=== PATIENT | male | born 1980 | race African-American/Black ===

== ENCOUNTER 2018-12-30 19:32 | Emergency (ER) | payer MEDICAID ==
[~2018-12-30] VITALS: Ht 188 cm; Wt 81.0 kg
[2018-12-30] MEDS ORDERED: ONDANSETRON 4MG ODT PO ONE (21:15)
[2018-12-30] MEDS ORDERED: DIPHENHYDRAMINE 50MG CAPSULE PO ONE (21:15)
[2018-12-30] MEDS ORDERED: IBUPROFEN 600MG TABLET PO ONE (21:30)
[2018-12-30 21:40] VITALS: BP 114/49
== END 2018-12-30 21:48 | disposition home or self-care (01) ==
LOC: ER 19:32
DX: J06.9 Acute upper respiratory infection, unspecified (principal); L50.9 Urticaria, unspecified; R11.2 Nausea with vomiting, unspecified; F41.9 Anxiety disorder, unspecified; F31.9 Bipolar disorder, unspecified; F12.10 Cannabis abuse, uncomplicated
CPT/HCPCS: 93005; 99284; Q0162; Q0163

== ENCOUNTER 2019-03-06 07:35 | Emergency (ER) | payer MEDICAID ==
[~2019-03-06] VITALS: Ht 188 cm; Wt 86.0 kg
[2019-03-06] MEDS ORDERED: IBUPROFEN 400MG TABLET PO ONE (10:30)
[2019-03-06 11:00] VITALS: BP 114/68
== END 2019-03-06 11:13 | disposition home or self-care (01) ==
LOC: ER 07:35
DX: B34.9 Viral infection, unspecified (principal)
CPT/HCPCS: 99282

== ENCOUNTER 2022-11-15 16:17 | Emergency (ER) | payer MEDICAID, OTHER ==
[~2022-11-15] VITALS: Ht 190.5 cm; Wt 82.0 kg
[2022-11-15 16:32] VITALS: BP 113/66; RESP 16; TEMP 97.6; O2SAT 100
[2022-11-15 16:38] VITALS: PULSE 82
[2022-11-15] MEDS ORDERED: ONDANSETRON 4MG ODT PO ONE (18:00)
[2022-11-15] MEDS ORDERED: LIDOCAINE 5% PATCH TOP SCH (18:00)
[2022-11-15 18:21] LABS: BASOPHILS % 0.6 % (0.0-2.0); EOSINOPHILS % 0.9 % (0.0-5.0); HEMATOCRIT. 45.2 % (42.0-52.0); HEMOGLOBIN. 15.4 g/dL (14.0-18.0); LYMPHOCYTES % 26.2 % (20.0-50.0); MEAN CORPUSCULAR HEMOGLOBIN 30.8 pg (28.0-32.0); MEAN CORPUSCULAR VOLUME 90.6 fL (80.0-94.0); MEAN PLATELET VOLUME 6.1 fl (7.4-10.4); MONOCYTES % 8.7 % (2.0-8.0); NEUTROPHILS % 63.6 % (40.0-76.0); PLATELET 316 x1000/uL (130-400); RED BLOOD CELL COUNT 4.99 mill/uL (4.7-6.1); RED CELL DISTRIBUTION WIDTH 13.5 % (11.6-14.6); WHITE BLOOD COUNT 6.3 x1000/uL (4.5-11.0)
[2022-11-15 18:28] LABS: CHLORIDE 105 mEq/L (98-107); INDEX HEMOLYSI 1 (1-3); INDEX ICTERIC 1 (1-4); INDEX LIPEMIC 1 (1-3); POTASSIUM 4.5 mEq/L (3.5-5.1); SODIUM 137 mEq/L (136-145)
[2022-11-15 18:35] LABS: ALANINE AMINOTRANSFERASE 39 IU/L (13-61); ALBUMIN 4.6 g/dL (3.4-5.0); ASPARTATE AMINOTRANSFERASE 29 IU/L (15-37); BILIRUBIN TOTAL 0.4 mg/dL (0.1-1.0); CALCIUM 8.7 mg/dL (8.5-10.1); CARBON DIOXIDE 25 mEq/L (21-32); GLUCOSE 99 mg/dL (70-105); UREA NITROGEN BLOOD 11 mg/dL (7-21)
[2022-11-15] MEDS ORDERED: IBUP-2028 MT ×3 (18:52→19:13)
[2022-11-15] MEDS ORDERED: IMOD MT ×2 (18:53)
[2022-11-15] MEDS ORDERED: LIDO700A15 TP (19:13)
[2022-11-15] MEDS ORDERED: LOPE2CAP MT (19:13)
== END 2022-11-15 19:41 | disposition home or self-care (01) ==
LOC: ER 16:23
DX: A08.4 Viral intestinal infection, unspecified (principal); R11.2 Nausea with vomiting, unspecified
CPT/HCPCS: 99283; 80053; 83690; 85025; 36415; Q0162